=== PATIENT | male | born 1960 | race African-American/Black ===

== ENCOUNTER → 2016-10-18 | Day surgery (SDC) | payer BC, OTHER ==
[~2016-10-18] MED LIST: BENZOCAINE 20% TOPICAL AEROSOL SPRAY 57GM CAN. TP ONE; BENZOCAINE ONE 20% MUCOSAL SPRAY.; FENTANYL PF 100 MCG/2 ML VIAL. IV ONE; FENTANYL PF 100 MCG/2 ML VIAL. ONE; IV RINGERS,LACTATED 1000ML 1,000 ML IV ONE; MIDAZOLAM HCL/PF 5 MG/5 ML VIAL. IV ONE; MIDAZOLAM HCL/PF 5 MG/5 ML VIAL. ONE; OMEP40CA5 PO
--- NOTE | 2016-10-18 14:34 | PDOC1 ---
History and Physical Date of Admission Date of Admission DATE: 10/18/16 TIME: 14:27 Source Source: Chart review, Patient History of Present Illness History of Present Illness 56 y/o male with pc upper abdominal bloating. Denies heartburn or typical reflux. On prednisone for polymyositis. No dysphagia. Imaging negative historically. NO h/o PUD, No overt bleeding. last colonoscopy ~10 years ago negative and desires repeat screening. Father had esophago/gastric cancer. Past Medical History Cardiovascular: HTN, Other (cardiomyopathy) Rheumatologic: Other (polymyositis) Past Surgical History Past Surgical History: Pacemaker (AICD) Family History Family History: Coronary Artery Disease Social History Smoke: <1 pack per day ALCOHOL: none Drugs: None Current Medications Current Medications Current Medications Midazolam HCl (Versed) 5 mg STK-MED ONCE .ROUTE ; Start 10/18/16 at 14:09; Stop 10/18/16 at 14:10; Status DC Fentanyl Citrate (Fentanyl 2ml Vial) 100 mcg STK-MED ONCE .ROUTE ; Start at 14:09; Stop 10/18/16 at 14:10; Status DC Benzocaine (Hurricaine One) 1 spray STK-MED ONCE .ROUTE ; Start 10/18/16 at 14:24 ; Stop 10/18/16 at 14:25; Status DC Allergies Allergies: Coded Allergies: No Known Drug Allergies (Unverified , 10/18/16) ROS Review of System Otherwise negative. Physical Exam General: Alert, Oriented X3, Cooperative, No acute distress Lungs: Clear to auscultation Heart: S1S2, RRR, no murmurs Abdomen: Normal bowel sounds, Soft, No tenderness, No hepatosplenomegaly, No masses Rectal Exam: deferred (to procedure) Extremities: No cyanosis, No edema Skin: No significant lesion Neuro: Normal speech, Strength at 5/5 X4 ext, Normal tone, Sensation intact, Cranial nerves 3-12 NL, Reflexes 2+ Psych/Mental Status: Mental status NL, Mood NL VTE Prophylaxis Ordered VTE Prophylaxis Devices: No VTE Pharmacological Prophylaxi: No Assessment/Plan Assessment/Plan IMP: Dyspepsia CRC screening. PLAN: colon/egd. TARYN HYMAN MD Oct 18, 2016 14:33
--- NOTE | 2016-10-18 15:07 | PDOC4 ---
PROCEDURE Procedure EGD/colon Indications: dyspepsia/screening MEDS: Fentanyl 100mg iv/versed 5mg iv, in divided doses. Findings: E-reflux with marcin 35-36, biopsied. g- normal, antral biopsies D-normal to second. DONNIE-normal -scope to cecum, 6mm polyp, distal transverse and 3mm polyp, hepatic flexure-- biopsied off. -otherwise normal to cecum with retroflex. Irene. well. IMP: 1. reflux/long's? 2. colon polyps REC: Await path. f/u 2 weeks. resume meds, diet as before. TAYRN HYMAN MD Oct 18, 2016 15:07
[2016-10-18 15:34] VITALS: BP 132/81
--- NOTE | 2016-10-23 09:02 | PATHOLOGY ---
PATHOLOGY REPORT * * * * * * * * FINAL DIAGNOSIS: A. Gastric biopsy, antrum: - Active chronic gastritis, moderate to marked, with Helicobacter organisms identified. B. Esophageal biopsy, distal esophagus: - Segments of esophagogastric and gastric mucosa showing chronic inflammation. C. Colon biopsies, distal transverse colon polyp: - Tubular adenoma. D. Colon biopsy, hepatic flexure polyp: - Tubular adenoma. COMMENT: Sections of the gastric biopsy reveal gastric antral mucosa showing moderate to marked active chronic inflammation with scattered admixed eosinophils. An immunoperoxidase stain for Helicobacter is obtained and reveals prominent numbers of Helicobacter pylori organisms. Sections of the distal esophageal biopsy reveal segments of esophagogastric and gastric mucosa showing moderate to marked chronic inflammation. There is no evidence of Akins's change, dysplasia, or malignancy. Sections of the distal transverse colon biopsy reveal a tubular adenoma showing no high-grade dysplasia or evidence of malignancy. Sections of the hepatic flexure colon biopsy also reveal a tubular adenoma showing no high-grade dysplasia or evidence of malignancy. (JPM:mgr; d/t: 10/22/16) Special Stain Performed: Immunoperoxidase stain for Helicobacter (A1) REPORT ELECTRONICALLY SIGNED BY: Tyler Burk M.D. DATE/TIME: 10/23/2016 09:01 * * * * * * * * GROSS PATHOLOGY: A. Received in formalin labeled "Mcclelland, Manny and bx antrum," are 2 segments of emanuel soft tissue measuring 0.9 x 0.2 x 0.2 cm in aggregate dimensions and measuring 0.3 and 0.6 cm in maximum dimension. The specimen is submitted entirely in cassette A1. B. Received in formalin labeled "Mcclelland, Manny and bx distal esophagus," are 3 segments of emanuel soft tissue measuring 1.2 x 0.2 x 0.2 cm in aggregate dimensions and ranging from 0.3 to 0.5 cm in maximum dimension. The specimen is submitted entirely in cassette B1. C. Received in formalin labeled "Mcclelland, Manny and bx colon polyp distal transverse," are 6 segments of emanuel soft tissue measuring 1.8 x 0.3 x 0.2 cm in aggregate dimensions and ranging from 0.2 to 0.6 cm in maximum dimension. The specimen is submitted entirely in cassette C1. D. Received in formalin labeled "Mcclelland, Manny and bx polyp hepatic flexure," is a segment of emanuel soft tissue measuring 0.4 cm in maximum dimension. The specimen is submitted entirely in cassette D1. (TTL; 10/21/2016) INITIAL CPT CODE(S): A; 36345, 52998 B; 89590 C; 01299 D; 97047 Professional services performed by [facility] at [address] [address] Technical services performed by [facility] at [address] [place] [address], [facility] [address] [address]. SPECIMEN(S) RECEIVED: A.Biopsy antrum B.Biopsy distal esophagus, r/o Akins's C.Biopsy colon polyp-distal transverse D.Biopsy polyp-hepatic flexure CLINICAL HISTORY: Abdominal pain PATIENT: MANNY MCCLELLAND /AGE: 309/20/1960 (Age: 56) PATIENT #: [id number] ALT CASE #: SPECIMEN COLLECTION DATE: 10/18/2016 SPECIMEN RECEIVED DATE: 10/21/2016 [facility] - [id number] [address] - PHONE: [phone] * * * END OF REPORT * * *
== END | disposition home or self-care (01) ==
LOC: SURG 13:41
PROVIDERS: ATTEND Internal Medicine Gastroenterology
DX: Z12.11 Encounter for screening for malignant neoplasm of colon (principal); D12.3 Benign neoplasm of transverse colon; K21.0 Gastro-esophageal reflux disease with esophagitis; K22.8 Other specified diseases of esophagus; K30 Functional dyspepsia; E78.00 Pure hypercholesterolemia, unspecified; I10 Essential (primary) hypertension; J45.909 Unspecified asthma, uncomplicated; I48.91 Unspecified atrial fibrillation
CPT/HCPCS: 43239; 45380; 99153; G0500; J2250; J3010

== ENCOUNTER 2017-08-20 08:56 | Inpatient (IN) | payer BC, OTHER ==
[2017-08-20] MEDS ORDERED: NITROGLYCERIN SUBLINGUAL 0.4 MG BOTTLE OF 25. SL (09:15)
[2017-08-20 09:39] LABS: ADD MAN DIFF? NO
[2017-08-20 09:44] LABS: BASO % 1 % (0-3); EOS # 0.2 x10^3/uL (0.0-0.7); EOS % 3 % (0-3); HEMATOCRIT 47.3 % (39.0-53.0); HEMOGLOBIN 16.1 g/dL (13.0-17.5); LYMPH # 1.1 x10^3/uL (1.0-4.8); LYMPH % 22 % (24-48); MEAN CORPUSCULAR HEMOGLOBIN 28 pg (25-35); MEAN CORPUSCULAR HGB CONC 34 g/dL (31-37); MEAN CORPUSCULAR VOLUME 81 fL (79-100); MONO # 0.4 x10^3/uL (0.0-1.1); MONO % 8 % (0-9); NEUT # 3.1 x10^3uL (1.8-7.7); NEUT % 66 % (31-73); PLATELET COUNT 160 x10^3/uL (140-400); RED BLOOD COUNT 5.82 x10^6/uL (4.30-5.70); RED CELL DISTRIBUTION WIDTH 13.8 % (11.5-14.5); WHITE BLOOD COUNT 4.7 x10^3/uL (4.0-11.0)
[2017-08-20 09:54] LABS: ANION GAP 7 (6-14); BLOOD UREA NITROGEN 10 mg/dL (8-26); CALCIUM 9.2 mg/dL (8.5-10.1); CARBON DIOXIDE 33 mmol/L (21-32); CHLORIDE 100 mmol/L (98-107); CREATININE 0.5 mg/dL (0.7-1.3); GFR 208.1; GLUCOSE 101 mg/dL (70-99); POTASSIUM 3.6 mmol/L (3.5-5.1); SODIUM 140 mmol/L (136-145)
[2017-08-20 10:00] LABS: ALBUMIN 3.4 g/dL (3.4-5.0); ALK PHOS 92 U/L (46-116); ALT (SGPT) 34 U/L (16-63); AST (SGOT) 31 U/L (15-37); DIRECT BILIRUBIN 0.1 mg/dL (0.0-0.2); LIPASE 79 U/L (73-393); TOTAL BILIRUBIN 0.5 mg/dL (0.2-1.0); TOTAL PROTEIN 8.8 g/dL (6.4-8.2)
[2017-08-20 10:02] LABS: INR 1.2 (0.8-1.1); PROTHROMBIN TIME PATIENT 14.1 SEC (11.7-14.0)
[2017-08-20 10:07] LABS: CKMB INDEX 2.3 % (0-4); CKMB MASS 6.5 ng/mL (0.0-3.6); CREATINE KINASE 287 U/L (39-308)
[2017-08-20 10:07] LABS: NT-PRO BNP 107 pg/mL (0-124); THYROID STIM HORMONE (TSH) 1.355 uIU/mL (0.358-3.74); TROPONINI 0.124 ng/mL (0.000-0.055)
[2017-08-20 10:09] LABS: BARBITURATES NEG (NEG); BENZODIAZEPINES NEG (NEG); CANNABINOIDS NEG (NEG); COCAINE NEG (NEG); METHADONE NEG (NEG); OPIATES NEG (NEG); PHENCYCLIDINE NEG (NEG)
[2017-08-20 10:10] LABS: AMPHETAMINE/METHAMPHETAMINE NEG (NEG); ETHANOL, URINE NEG (NEG)
[2017-08-20 10:18] LABS: D-DIMER 0.31 ug/mlFEU (0.00-0.50)
[2017-08-20 10:19] LABS: BILIRUBIN,URINE NEGATIVE (NEG); CLARITY,URINE CLEAR; COLOR,URINE YELLOW; GLUCOSE,URINE NEGATIVE (NEG); NITRITE,URINE NEGATIVE (NEG); PH,URINE 6.5; PROTEIN,URINE NEGATIVE (NEG-TRACE); UROBILINOGEN,URINE 0.2 mg/dL (0.2 mg/dL)
[2017-08-20 10:20] LABS: BACTERIA,URINE 0 /HPF (0-FEW); RBC,URINE 0 /HPF (0-2); WBC,URINE 0 /HPF (0-4)
[2017-08-20] MEDS ORDERED: MORPHINE SULFATE 4 MG/ML DISP.SYRIN. IV/SQ (11:45)
[2017-08-20] MEDS: MORPHINE SULFATE 2 MG/ML DISP.SYRIN. IV/SQ ×2 (12:00→23:37)
[2017-08-20] MEDS: ONDANSETRON PF 4 MG/2 ML VIAL. IV (12:00)
[2017-08-20 13:56] LABS: CHOLESTEROL 224 mg/dL (0-200); HDLC 60 mg/dL (40-60); LDLC 143 mg/dL (0-100); NON-HDL CHOLESTEROL 164 mg/dL (0-129); TRIGLYCERIDES 106 mg/dL (0-150); VLDLC 21 mg/dL (0-40)
[2017-08-20 13:57] LABS: CHOLESTEROL/HDL RATIO 3.7
[2017-08-20 19:41] LABS: TROPONINI 0.118 ng/mL (0.000-0.055)
[2017-08-21 01:43] LABS: ADD MAN DIFF? NO
[2017-08-21 02:10] LABS: BASO % 1 % (0-3); EOS # 0.2 x10^3/uL (0.0-0.7); EOS % 5 % (0-3); HEMATOCRIT 44.5 % (39.0-53.0); HEMOGLOBIN 14.6 g/dL (13.0-17.5); LYMPH # 1.3 x10^3/uL (1.0-4.8); LYMPH % 31 % (24-48); MEAN CORPUSCULAR HEMOGLOBIN 27 pg (25-35); MEAN CORPUSCULAR HGB CONC 33 g/dL (31-37); MEAN CORPUSCULAR VOLUME 83 fL (79-100); MONO # 0.4 x10^3/uL (0.0-1.1); MONO % 11 % (0-9); NEUT # 2.2 x10^3uL (1.8-7.7); NEUT % 53 % (31-73); PLATELET COUNT 149 x10^3/uL (140-400); RED BLOOD COUNT 5.37 x10^6/uL (4.30-5.70); RED CELL DISTRIBUTION WIDTH 14.1 % (11.5-14.5); WHITE BLOOD COUNT 4.2 x10^3/uL (4.0-11.0)
[2017-08-21 02:19] LABS: ANION GAP 5 (6-14); BLOOD UREA NITROGEN 14 mg/dL (8-26); CALCIUM 8.7 mg/dL (8.5-10.1); CARBON DIOXIDE 33 mmol/L (21-32); CHLORIDE 103 mmol/L (98-107); CREATININE 0.5 mg/dL (0.7-1.3); GFR 208.1; GLUCOSE 122 mg/dL (70-99); POTASSIUM 4.1 mmol/L (3.5-5.1); SODIUM 141 mmol/L (136-145)
[2017-08-21] MEDS: ONDANSETRON PF 4 MG/2 ML VIAL. IV (03:43)
[2017-08-21] MEDS: REGADENOSON 0.4 MG/5 ML DISP.SYRIN. IV (09:50)
[2017-08-21] MEDS: amLODIPine BESYLATE 10 MG TABLET PO (11:41)
[2017-08-21] MEDS: ASPIRIN ENTERIC COATED 81 MG TABLET.DR. PO (11:42)
[2017-08-21] MEDS: APIXABAN 5 MG TABLET. PO ×2 (11:42→21:05)
[2017-08-21] MEDS: FUROSEMIDE 20 MG TABLET PO (11:42)
[2017-08-21] MEDS: predniSONE 5 MG TABLET PO (13:25)
[2017-08-21] MEDS: PANTOPRAZOLE 40 MG TABLET.DR. PO (13:25)
[2017-08-21] MEDS: LIDO:MAALOX:DONNATAL 1:1:1 15 ML SINGLE DOSE SWSW (13:25)
[2017-08-21] MEDS: METOPROLOL TART IMMED RELEASE 25 MG TABLET. PO (15:22)
[2017-08-21] MEDS: ANTI-COAG MONITOR BY PHARMACY. MC (16:27)
[2017-08-21] MEDS: diphenhydrAMINE HCL 25 MG CAPSULE PO (21:05)
[2017-08-22] MEDS: HYDROcodone/APAP 7.5/325MG 1 TAB TABLET PO (03:01)
[2017-08-22] MEDS ORDERED: NON FORMULARY ITEM (Tadalafil (Cialis) 5 MG) PO (09:00)
[2017-08-22] MEDS: PANTOPRAZOLE 40 MG TABLET.DR. PO (10:24)
[2017-08-22] MEDS: ASPIRIN ENTERIC COATED 81 MG TABLET.DR. PO (10:24)
[2017-08-22] MEDS: APIXABAN 5 MG TABLET. PO (10:24)
[2017-08-22] MEDS: amLODIPine BESYLATE 10 MG TABLET PO (10:25)
[2017-08-22] MEDS: predniSONE 5 MG TABLET PO (10:25)
[2017-08-22] MEDS: FUROSEMIDE 20 MG TABLET PO (10:25)
[2017-08-22] MEDS: METOPROLOL TART IMMED RELEASE 25 MG TABLET. PO (10:26)
[2017-08-28] MEDS ORDERED: ERGOCALCIFEROL (VITAMIN D2) 50,000 UNIT CAPSULE. PO (09:00)
== END 2017-08-22 15:00 | disposition home or self-care (01) | DRG 189 ==
LOC: ER 08:56 → 6 SOUTH 11:45 → 2 SOUTH 13:06
DX: J96.01 Acute respiratory failure with hypoxia (principal); I47.2 Ventricular tachycardia; I25.110 Atherosclerotic heart disease of native coronary artery with unstable angina pectoris; G62.9 Polyneuropathy, unspecified; I27.20 Pulmonary hypertension, unspecified; M33.20 Polymyositis, organ involvement unspecified; I42.8 Other cardiomyopathies; I50.22 Chronic systolic (congestive) heart failure; I49.5 Sick sinus syndrome; I11.0 Hypertensive heart disease with heart failure; I48.0 Paroxysmal atrial fibrillation; J98.11 Atelectasis; R74.8 Abnormal levels of other serum enzymes; D86.0 Sarcoidosis of lung; J84.10 Pulmonary fibrosis, unspecified; E78.5 Hyperlipidemia, unspecified; J98.4 Other disorders of lung; J45.909 Unspecified asthma, uncomplicated; I44.7 Left bundle-branch block, unspecified; M19.90 Unspecified osteoarthritis, unspecified site; K21.9 Gastro-esophageal reflux disease without esophagitis; K59.00 Constipation, unspecified; Z82.49 Family history of ischemic heart disease and other diseases of the circulatory system; Z95.810 Presence of automatic (implantable) cardiac defibrillator; Z86.711 Personal history of pulmonary embolism; Z86.010 Personal history of colon polyps; Z79.01 Long term (current) use of anticoagulants; Z86.718 Personal history of other venous thrombosis and embolism; Z79.52 Long term (current) use of systemic steroids; Z87.891 Personal history of nicotine dependence
CPT/HCPCS: 36415; 71045; 78452; 80048; 80061; 80076; 80307; 81001; 82553; 83690; 83880; 84443; 84484; 85025; 85379; 85610; 93005; 93017; 93306; 96374; 96375; 96376; 99285; 99285-25; A9500; J2270; J2405; J2785; J7512; Q0163